=== PATIENT | female | born 1995 ===

== ENCOUNTER 2016-05-01 12:48 | Inpatient (IN) | payer BC, OTHER ==
[2016-05-01 13:04] VITALS: BMI 28.6
[2016-05-01] MEDS ORDERED: SODIUM CHLORIDE 0.9% FLUSH 0 ML ONE (15:32)
[2016-05-01] MEDS ORDERED: IV START KIT ONE (15:32)
[2016-05-01] MEDS ORDERED: FENTANYL 100 MCG/2 ML VIAL IV ONE (15:33)
[2016-05-01] MEDS ORDERED: LACTATED RINGERS 1,000 ML ONE (15:44)
[2016-05-01] MEDS ORDERED: OXYTOCIN IN LR 500 ML IV ONE ×2 (15:51→15:59)
[2016-05-01] MEDS ORDERED: NALBUPHINE HCL 20 MG/ML AMP IV ONE ×2 (15:53→20:46)
[2016-05-01] MEDS: LACTATED RINGERS 1,000 ML IV SCH (15:57)
[2016-05-01] MEDS ORDERED: MINERAL OIL 25 ML BOT ONE (15:58)
[2016-05-01] MEDS ORDERED: PUMP TUBING ONE (15:58)
[2016-05-01] MEDS ORDERED: OXYTOCIN 10 UNITS/ML VIAL ONE (15:58)
[2016-05-01] MEDS ORDERED: LIDOCAINE Viscous 2% 15 ML UDCUP ONE (15:58)
[2016-05-01] MEDS ORDERED: LIDOCAINE 1% (PRES FREE) 30 ML VIAL ONE (15:58)
--- NOTE | 2016-05-01 16:31 | PCMAN ---
OB Admission Note - History : 1 Term: 0 : 0 Abortions (S&E): 0 Livin EDC:: 05/02/16 Gestational Age (weeks): 39 Days (#/7): 6 Admit Cervical Dilation:: 4 Admit Cervical Effacement (%):: 100 Admit Station:: -1 Admit Presentaton:: vertex Membrane Status: Bulging Contractions: Yes Contraction Frequency:: q 2-3 mins, moderate to firm, 90 seconds in duration Heart Rate:: 150 (moderate variability/accels present/decels absent) Status:: FHR Cat 1 EFW:: 7.5# Summary of Course:: Onset of care at 6 weeks x 16 visits. complicated by biliary colic, teen and random elevated BPs in the mild range with consistently negative PIH workup. Presents to [facility] in early/active labor. Has been having contractions since last night and was found to be 2-3/90/-2 in clinic this morning. Went home and waited for contractions to become more frequent and intense. SVE at [facility] initially 3/100/-1 and was found to be 4/100/-1 after 2 hours. Patient struggled to cope with contraction intensity and started hyperventilating. Admitted in early/active labor for labor management and pain management. Supported at bedside by FOB and parents. - Labs Blood Type: O (+) positive Hct/Hgb:: 14.0 Rubella Status: Immune GBS Status: Negative - Review of Systems Tingling around mouth and in hands. Having back pain with contractions. - Physical Exam General: Afebrile, Moderate Distress Psych/Mental Status: Mood/Affect Appropriate, Judgment/Insight Intact Neurological: Grossly Intact, Alert, Oriented x 4 Lungs: Clear to Auscultation Bilaterally Cardiovascular: Regular Rate and Rhythm Genitourinary: Normal Female Genitalia, No Edema Extremities: Full ROM, No Edema Skin: Normal Color, Warm, Dry - Problems (1) Active labor at term Status: Acute Code: [id number] Assessment/Plan: 20 year old at 39w6d Early/active labor FHR Cat 1 Gestational Hypertension; r/o PET Difficulty coping with labor GBS negative Suspected malposition/ROP Teen Good social support Plan: Admit to [facility]. PIH workup Nubain 10 mg for pain relief Hydrotherapy or epidural per patient request Exercises to promote rotation as tolerated by patient Reassess labor in 2 hours or PRN
[2016-05-01 17:19] LABS: ABSOLUTE NEUTROPHIL COUNT 21.4 K/mm3 (1.8-7.7); BASO % 0.2 % (0.2-1.0); HEMATOCRIT 36.6 % (37.0-47.0); HEMOGLOBIN 12.8 gm/l (12.0-16.0); IMM NEUT # 0.2 K/mm3 (0-0.2); IMM NEUT% 0.7 % (0-1); LYMPH # 1.3 (1.0-4.8); LYMPH % 5.2 % (15-45); MEAN PLATELET VOLUME 10.8 fl (7.4-10.4); MONO # 1.2 (0.0-0.8); MONO % 5.1 % (4-12); NEUT % 88.8 % (43-75); PLATELET COUNT 161 K/mm3 (130-400)
[2016-05-01 17:38] LABS: ALB/GLOB RATIO 0.9 (>1.0); ALBUMIN 3.1 gm/dL (3.5-5.7); ALT/SGPT 9 U/L (7-52); BLOOD UREA NITROGEN 5 mg/dL (7-25); BUN/CREATININE RATIO 8 (6-20); CALCIUM 8.6 mg/dL (8.6-10.3); URIC ACID 4.6 mg/dL (2.3-7.6)
[2016-05-01 18:45] LABS: BAND 7 % (0-10); BASOPHIL 0 % (0-1); EOSINOPHIL 0 % (1-3); LYMPHOCYTE 6 % (15-45); MONOCYTE 4 % (4-12); NEUTROPHILS 83 % (43-75); PLATELET ESTIMATE NORMAL (NORMAL); TOTAL CELLS COUNTED 100
[2016-05-01 20:58] LABS: CREATININE,RANDOM URINE 25 mg/dL
[2016-05-02] MEDS ORDERED: FENTANYL/ROPIVACAINE EPIDURAL 250 ML EP ONE (00:20)
[2016-05-02] MEDS ORDERED: EPIDURAL PUMP SET ONE (00:20)
[2016-05-02] MEDS ORDERED: LIDOCAINE 2% (PRES FREE) 5 ML VIAL ONE (00:47)
[2016-05-02] MEDS ORDERED: EPIDURAL PROCEDURE TRAY ONE (00:47)
[2016-05-02] MEDS: FENTANYL/ROPIVACAINE EPIDURAL 250 ML EP SCH (01:00)
[2016-05-02] MEDS: LACTATED RINGERS 1,000 ML IV SCH ×12 (02:31→19:52)
[2016-05-02] MEDS ORDERED: NALOXONE HCL 0.4 MG/ML VIAL IV PRN (04:57)
[2016-05-02] MEDS ORDERED: SODIUM CHLORIDE 0.9% 500 ML IV PRN (04:57)
[2016-05-02] MEDS ORDERED: LACTATED RINGERS 500 ML IV PRN (04:57)
[2016-05-02] MEDS ORDERED: NALBUPHINE HCL 20 MG/ML AMP IV PRN (04:57)
[2016-05-02] MEDS ORDERED: DIPHENHYDRAMINE HCL 50 MG/1 ML VIAL IV PRN (04:57)
[2016-05-02] MEDS ORDERED: METOCLOPRAMIDE HCL 5 MG/ML 2ML VIAL IV PRN (04:57)
[2016-05-02] MEDS ORDERED: ONDANSETRON 4 MG/2ML 2 ML VIAL IV PRN (04:57)
[2016-05-02] MEDS ORDERED: EPHEDRINE SULFATE 50 MG/ML 1ML VIAL IV PRN (04:57)
--- NOTE | 2016-05-02 05:33 | PDOC36 ---
Provider Note Subject: labor progress note 2052 Note: S: Sylvie has been laboring in the tub and coping well. She has been getting more painful over the last hour and now requests a second dose of nubain. O: VE: 5/100/-2, BBOW, suspected LOP IA: baseline 150/increases noted/no decreases Ctx: q 2-3min/60sec/moderate Vitals: BP: 119/62, P: 76, T: 37.0 (highest BP 141/88) Labs: p/c ratio .32; AST/ALT 14/9; uric acid 4.6; platelets 161, H/H 12.8/36.36 A: at 39w6d Preeclampsia by definition of two BPs >/=140/90 and elevated p/c ratio FHR: appropriate for IA,unless a change in plan Latent labor, anticipate change to active labor membranes intact, gbs intact suspected malposition P: Reviewed coping in labor. Nubain ordered. Encouraged upright positions. Anticipate .
--- NOTE | 2016-05-02 05:43 | PDOC36 ---
Provider Note Subject: labor progress note - epidural at 6cm Note: S: Sylvie has been primarily on hands on knees. She has been rocking her hips and lots of movement. Spinning babies Rebozo and FLI done. Limited side lying release done. Supported by FOB and parents. Has been coping very well over the last three hours, but recently started to struggle to cope. Crying and requesting epidural, states she is too tired to cope. O: VE: 6/100/-2, BBOW, suspected LOP FHT: baseline 145/moderate variability/accels present/decels absent Ctx: q 2-3min/60sec/moderate Vitals: BP: 119/67, P: 75, T: 37.4 (highest BP 158/95 taken during contraction, otherwise highest 147/87) A: at 40w0d Preeclampsia FHR: cat. I Active labor membranes intact, gbs neg suspected malposition P: Reviewed pain options, Sylvie has decided to have epidural. Epidural ordered. Encouraged sleep and maternal position changes condusive to sleep Anticipate .
[2016-05-02] MEDS ORDERED: ONDANSETRON 4 MG/2ML 2 ML VIAL IV ONE (08:08)
[2016-05-02] MEDS: STERILE IV SCH ×2 (10:23→19:51)
[2016-05-02] MEDS: SODIUM CHLORIDE 0.9% IV SCH ×2 (10:23→19:51)
[2016-05-02] MEDS ORDERED: MINERAL OIL 25 ML BOT PO ONE (15:05)
[2016-05-02] MEDS ORDERED: LIDOCAINE 1% (PRES FREE) 5 ML VIAL SUB-Q ONE (16:50)
[2016-05-02] MEDS ORDERED: FLU VACC 2016-17 (36MO-64Y)/PF 60 MCG/0.5 ML SYRINGE IM V ONE (17:03)
[2016-05-02] MEDS ORDERED: DOCUSATE SODIUM 100 MG CAPSULE PO PRN (18:27)
[2016-05-02] MEDS ORDERED: CALCIUM CARBONATE 500 MG TAB.CHEW PO PRN (18:27)
[2016-05-02] MEDS ORDERED: SENNOSIDES 8.6 MG TABLET PO PRN (18:27)
[2016-05-02] MEDS ORDERED: MAGNESIUM HYDROXIDE 30 ML UDCUP PO PRN (18:27)
[2016-05-02] MEDS ORDERED: LACTATED RINGERS 1,000 ML IV PRN (18:27)
[2016-05-02] MEDS ORDERED: LANOLIN 50 APPLIC/7G TUBE TP PRN (18:27)
[2016-05-02] MEDS ORDERED: BENZOCAINE/MENTHOL 60 APPLIC/BOT TP PRN (18:27)
[2016-05-02] MEDS ORDERED: HYDROCODONE/ACETAMINOPHEN 5/325MG TABLET PO PRN (18:27)
[2016-05-02] MEDS: IBUPROFEN 800 MG TABLET PO SCH (19:16)
--- NOTE | 2016-05-02 20:15 | PCMDEL ---
Delivery Note - Labor 1st stage (hr/min):: 18h42m 2nd stage (hr/min):: 1h23m 3rd stage (hr/min):: 0h12m Total (hr/min):: 19h17m Pushed (hr/min):: 1h0m - Delivery Delivery (Date): 05/02/16 Delivery (Time): 16:25 Gender: Male Weight: 7 lb 9 oz Length: 1 ft 8.5 in Position: OA Umbilical Cord: 3 Vessel Delayed Cord Clamping:: > 3 min 1 Minute Total: 9 5 Minute Total: 9 Placenta:: Spontaneous, patton, intact, 3vc EBL:: 350ml Perineum:: bilateral labial lacerations with extensions through hymen x 2. 1st degree. Suture:: 4-0 vicryl Anesthesia/Meds:: nubain x 2, epidural Length ROM:: 14h10m Comments:: Sylvie was admitted at 4cm when she wasn't coping well in labor. She labored with the support of MADDIE Agustin and their family. She requested IV pain medication x2 and each time received nubain. After laboring with lots of spontaneous maternal movement (H&K, on ball, walking, etc) and spinning babies positioning, she requested an epidural due exhaustion. After receiving epidural she slept for 6hrs. FHT cat. I and II throughout labor, with noted bradycardia after walchers position to assist with malposition, baby recovered to marked variability followed by cat. I for the remainder of active labor. At 0200 she had SROM for clear fluid but given minimal progress due to malposition LOP approx 10hrs later she had AROM of a bulgy forbag for clear fluid. She then labored down and pushed effectively to achieve of vigorous male . OA to NASRIN. After delivery of head and shoulders, FOB and Sylvie delivered the baby to Sylvie's arms. placed skin to skin for bonding and drying. Delayed cord clamping until cessation of pulsations, cord cut by FOB , and cord blood collected. AMTSL with IV pitocin initiated. Spontaneous delivery of intact placenta, patton, 3vc. Fundus firm midline at U. Bilateral labial lacerations with extensions through hymen x 2 repaired to approximation and hemostasis with 4-0 vicryl. Hemostasis achieved. EBL 250ml. Mom and baby stable, baby to breast in 30min.
--- NOTE | 2016-05-02 20:25 | PDOC36 ---
Provider Note Subject: labor note- progress and noting decel Note: S: Sylvie has been resting and slept well with epidural. Minimal progress related to suspected LOP malposition by leopolgabriella and VE. O: VE: 7/100/-2, BBOW, suspected LOP FHT: baseline 145/moderate variability/accels present/decels absent. At 0858 walchers positioning done with Sylvie to promote rotation, shortly followed by bradycardia to 90s and 60s, with positive scalp stimulation, that returned to baseline with position change to Hands and knees, then left lateral, O2 and fluid bolus. Brief period of marked variability follow deceleration during recovery, followed by Cat. I tracing. During deceleration, VE noted to be 8/100/-1, cervix primarily anterior. Ctx: q 4-6min/60sec/moderate A: at 40w0d suspected malposition Preeclampsia FHR: cat. I Active labor membranes intact, gbs neg P: Continue with positions to promote rotation, excluding walchers. Following recovery of baby and sustained Cat. I for greater than 20min, consider AROM. Anticipate .
--- NOTE | 2016-05-02 20:30 | PDOC36 ---
Provider Note Subject: labor progress note - arom Note: S: Sylvie has continued to resting with epidural. O: VE: 9/100/-2, BBOW, anterior cervix, suspected LOP FHT: baseline 140/moderate variability/accels present/decels absent. Cat. I since bradycardia. Ctx: q 2-3min/90-120sec/moderate A: at 40w0d suspected malposition Preeclampsia FHR: cat. I Active labor SROM since 0200, AROM of BBOW for clear fluid P: Discussed continued malposition and slow progress. AROM of BBOW for clear fluid. Encourage laboring down. Anticipate .
[2016-05-03] MEDS: IBUPROFEN 800 MG TABLET PO SCH ×5 (02:53→19:17)
[2016-05-03 06:18] LABS: HEMATOCRIT 29.7 % (37.0-47.0); HEMOGLOBIN 10.1 gm/l (12.0-16.0)
[2016-05-03] MEDS: FENTANYL/ROPIVACAINE EPIDURAL 250 ML EP SCH (07:12)
--- NOTE | 2016-05-03 10:58 | PDOC44 ---
- Subjective Day: 1 She feesl great about how her went. Reports that is going well and is not painful. She is not painful at this time. Ambulating and voiding without difficulty. Has support from partner and family. She denies feeling lightheaded, dizzy or feeling faint. Denies DYSON's vision changes or epidastric pain. Reports Flatus, Reports Pain Tolerable, Reports , Reports Lochia Light - Objective Temp Pulse Resp BP Pulse Ox 97.4 F 78 16 117/59 05/03/16 08:15 05/03/16 08:15 05/03/16 08:15 05/03/16 08:15 Lab Results 05/03/16 05:15 Hgb 10.1 L D Hct 29.7 L Current Medications Generic Name Dose Route Start Last Admin Trade Name Freq PRN Reason Stop Dose Admin Acetaminophen/Hydrocodone Bitart 1 - 2 tab 05/02/16 18:27 05/02/16 19:16 Early 5/325 PO 1 tab Q4H PRN Administration Pain (Moderate) Ascorbic Acid 500 mg 05/03/16 10:15 Vitamin C PO DAILY POLI Benzocaine/Menthol 1 applic 05/02/16 18:27 05/02/16 19:22 Dermoplast TP 1 puff PRN PRN Administration Patient Comfort Calcium Carbonate/Glycine 500 - 1,000 mg 05/02/16 18:27 Tums PO BID PRN Indigestion Docusate Sodium 100 mg 05/02/16 18:27 Colace PO DAILY PRN Comfort Emollient Ointment 1 applic 05/02/16 18:27 [id number] TP PRN PRN sore nipples Ferrous Gluconate 324 mg 05/03/16 10:30 Fergon PO DAILY POLI Ropivacaine/Fentanyl/NS 250 mls @ 0 mls/hr 05/02/16 05:15 05/03/16 07:12 Fentanyl 2 Mcg/Ml + Ropivacaine 0.125% Ep Bag EP Not Given EPI POLI Protocol Per Protocol Lactated Ringer's 1,000 mls @ 100 mls/hr 05/02/16 18:27 Lactated Ringers IV .Q10H PRN Titrate per clinical situation Ibuprofen 800 mg 05/02/16 18:30 05/03/16 07:10 Motrin PO Not Given Q6H [facility] Magnesium Hydroxide 30 ml 05/02/16 18:27 Milk Of Magnesia PO BEDTIME PRN Constipation Senna 17.2 mg 05/02/16 18:27 Senokot PO BEDTIME PRN Comfort Sodium Chloride 10 ml 05/02/16 18:27 Normal Saline 10ml Flush IV PRN PRN IV Flush - Physical Exam General: Afebrile Psych/Mental Status: Mood/Affect Appropriate, Judgment/Insight Intact, Bonding Well Neurological: Grossly Intact, Alert, Oriented x 4 HEENT: Atraumatic Lungs: Clear to Auscultation Bilaterally, Normal Air Movement Cardiovascular: Regular Rate and Rhythm, Normal S1, Normal S2 Breast: Soft, Skin intact, Nipples Intact Fundus: Firm, Midline, Below Umbilicus Genitourinary: Normal Female Genitalia Lochia: Light Rectal Exam: Deferred Extremities: Full ROM Skin: Normal Color - Problems:Assessment/Plan (1) care following vaginal delivery Status: Acute Assessment/Plan: A: 20yp PPday 1 Normal PP recovery Anemia Pre-eclampsia VSS P: Will come in to clinic at one week for BP check Starting PO iron today for anemia COntinued support from and RN while in hospital BF follow-up with [facility] clinic PRN. DC to home care tomorrow. Disposition: Anticipate DC Home Tomorrow
[2016-05-03] MEDS: ASCORBIC ACID 500 MG TABLET PO SCH (11:11)
[2016-05-03] MEDS: FERROUS GLUCONATE (38 Fe) 324 MG TABLET PO SCH (11:12)
[2016-05-04] MEDS: IBUPROFEN 800 MG TABLET PO SCH ×2 (01:37→07:33)
[2016-05-04 07:48] VITALS: BP 116/70
[2016-05-04] MEDS: FERROUS GLUCONATE (38 Fe) 324 MG TABLET PO SCH (10:32)
[2016-05-04] MEDS: ASCORBIC ACID 500 MG TABLET PO SCH (10:32)
--- NOTE | 2016-05-04 12:25 | PDOC39B ---
Hospital Course: ADMIT DATE: 05/01/16 DISCHARGE DATE: 05/04/2016 ADMISSION DIAGNOSES: Active Labor PROCEDURES: HISTORY OF PRESENT ILLNESS: 20 year old G1 T0 L0 at 40 weeks 0 days presenting with active labor. HOSPITAL COURSE: The patient is ready to go home. She is without problems and has a scheduled appointment set up with . An appointment is also scheduled with the telecommunications analyst. She has a car seat and is going home to her parent's. Her partner is with her. No concerns noted at this time. Her BP is normotensive. No c/o headache or other associated signs of pre- eclampsia. She is eating, drinking and voiding. Bleeding is light. Taking Ibuprofen for pain. By day of discharge the patient is stable, well and ready to go home. - Physical Exam Vital Signs: Temp Pulse Resp BP Pulse Ox 98.5 F 70 16 116/70 05/04/16 07:30 05/04/16 07:30 05/04/16 07:30 05/04/16 07:30 General: Afebrile Psych/Mental Status: Mood/Affect Appropriate Neurological: Grossly Intact, Alert HEENT: Atraumatic Cardiovascular: Regular Rate and Rhythm Breast: Soft Fundus: Firm Genitourinary: Normal Female Genitalia Lochia: Light Rectal Exam: Deferred Extremities: Full ROM Skin: Normal Color, Warm, Dry, Intact - Discharge Plan Condition: Good Disposition: Home Instruction Forms: Vaginal Discharge Instructions Additional Instructions: Midwifery 'After the ' handout given to patient. Discharge Medications: Pt declines any d/c medications Follow-Up: Alana Lopez CNM [Certified Nurse Director [place]] - In 7-10 days (Needs a 1 week visit for her BP check)
== END 2016-05-04 12:44 | disposition home or self-care (01) | DRG 989 ==
LOC: FBCOUT 12:48 → FBC 12:49 → FBCOUT 15:53 → FBC 15:53
PROVIDERS: ADMIT Licensed Practical Nurse; ATTEND Advanced Practice Midwife
PROC: 10E0XZZ Delivery of Products of Conception, External Approach (ICD-10-PCS; principal; 2016-05-02)
PROC: 0UQK7ZZ Repair Hymen, Via Natural or Artificial Opening (ICD-10-PCS; 2016-05-02)
PROC: 0HQ9XZZ Repair Perineum Skin, External Approach (ICD-10-PCS; 2016-05-02)
PROC: 10907ZC Drainage of Amniotic Fluid, Therapeutic from Products of Conception, Via Natural or Artificial Opening (ICD-10-PCS; 2016-05-02)
PROC: 00HU33Z Insertion of Infusion Device into Spinal Canal, Percutaneous Approach (ICD-10-PCS; 2016-05-02)
DX: O14.94 Unspecified pre-eclampsia, complicating childbirth (principal); O71.5 Other obstetric injury to pelvic organs; O64.8XX0 Obstructed labor due to other malposition and malpresentation, not applicable or unspecified; O75.81 Maternal exhaustion complicating labor and delivery; O76 Abnormality in fetal heart rate and rhythm complicating labor and delivery; O90.81 Anemia of the puerperium; Z3A.40 40 weeks gestation of pregnancy; Z37.0 Single live birth

== ENCOUNTER 2016-05-07 10:54 | Outpatient (CLI) | payer BC | END 2016-05-07 10:55 | disposition home or self-care (01) | LOC: BABIESSH 10:54 | PROVIDERS: ATTEND Licensed Practical Nurse | DX: Z39.1 Encounter for care and examination of lactating mother (principal) ==